=== PATIENT | male | born 1950 | race Caucasian/White ===

== ENCOUNTER → 2022-06-29 13:22 | Outpatient (CLI) | payer MEDICARE, OTHER, SELFPAY ==
[2022-06-29 20:12] LABS: BUN Creatinine Ratio 24.7 (6-22); Blood Urea Nitrogen 20 mg/dL (9-20); Calcium 8.9 mg/dL (8.4-10.2); Carbon Dioxide 25 mmol/L (22-32); Chloride 105 mmol/L (98-107); Estimated Glomerular Filt Rate > 60 mL/min (>60); Glucose 118 mg/dL (80-110); HEMOLYSIS 17 (0-50); Potassium 4.1 mmol/L (3.4-5.1); Sodium 138 mmol/L (137-145)
[2022-06-29 20:41] LABS: Prostate Specific Antigen Scrn 9.86 ng/mL (0.1-4.0)
== END ==
PROVIDERS: PCP Family Medicine; Visit Provider Family Medicine
DX: Z12.5 Encounter for screening for malignant neoplasm of prostate (principal); I10 Essential (primary) hypertension; R31.29 Other microscopic hematuria; R33.9 Retention of urine, unspecified
CPT/HCPCS: 80048; G0103

== ENCOUNTER → 2022-10-23 10:32 | Outpatient (CLI) | payer MEDICARE, OTHER, SELFPAY ==
[2022-10-23 19:52] LABS: Cholesterol 144 mg/dL (140-199); HDL Cholesterol 52 mg/dL (40-60); LDL Cholesterol Calculated 69 mg/dL (<100); Triglycerides 115 mg/dL (35-150)
[2022-10-23 20:19] LABS: Creatinine Urine Random 103.6 mg/dL
[2022-10-23 20:23] LABS: Microalbumi Creatinin Ratio Ur 16.4 ug/mg CR (<30); Microalbumin Urine Random 1.7 mg/dL (0-1.6)
[2022-10-23 21:28] LABS: Folate 10.6 ng/mL (2.76-20.0); Vitamin B12 273 pg/mL (239-931)
[2022-10-25 06:32] LABS: Labcorp Hemoglobin (Hb) A1c 5.8 % (4.8-5.6)
[2022-10-26 13:40] LABS: Albumin 3.6 g/dL (2.9-4.4); Alpha-1-Globulin 0.2 g/dL (0.0-0.4); Alpha-2-Globulin 0.6 g/dL (0.4-1.0); Gamma Globulin 1.5 g/dL (0.4-1.8); Globulin Total 3.2 g/dL (2.2-3.9); Protein, Total 6.8 g/dL (6.0-8.5)
== END ==
PROVIDERS: PCP Family Medicine; Visit Provider Family Medicine
DX: G57.93 Unspecified mononeuropathy of bilateral lower limbs (principal); E78.5 Hyperlipidemia, unspecified; G57.90 Unspecified mononeuropathy of unspecified lower limb; G62.9 Polyneuropathy, unspecified; I10 Essential (primary) hypertension; I48.20 Chronic atrial fibrillation, unspecified; R73.01 Impaired fasting glucose
CPT/HCPCS: 80061; 82043; 82570; 82607; 82746; 83036; 84155; 84165; 84443

== ENCOUNTER → 2023-10-12 09:24 | Outpatient (CLI) | payer MEDICARE, OTHER, SELFPAY ==
[2023-10-12 19:01] LABS: Add Manual Diff / Slide Review NO; Basophils Absolute Auto 100 /uL (0-100); Basophils Percent Auto 0.9 % (0-2); Eosinophils Absolute Auto 500 /uL (0-450); Hematocrit 50.1 % (41-53); Hemoglobin 16.7 g/dL (13.5-17.5); Lymphocytes Absolute Auto 1400 /uL (1100-4500); Lymphocytes Percent Auto 21.7 % (25-40); Mean Corpuscular HGB Conc 33.3 % (30-36); Mean Corpuscular Hemoglobin 32.6 PG (26-34); Mean Corpuscular Volume 97.7 fL (80-100); Monocytes Absolute Auto 400 /uL (0-900); Monocytes Percent Auto 6.8 % (3-14); Neutrophils Absolute Auto 4000 /uL (1500-7000); Neutrophils Percent Auto 62.6 % (50-75); Platelet Count 265 X10^3/uL (150-400); Red Blood Cell Count 5.13 X10^6/uL (4.5-5.9); Red Cell Distribution Width 14.1 % (11.6-14.8); White Blood Cell Count 6.4 X10^3/uL (4.5-11.0)
[2023-10-12 19:44] LABS: TSH w/ Reflex to FT4 1.78 uIU/mL (0.47-4.68)
[2023-10-12 20:11] LABS: BUN Creatinine Ratio 19.6 (6-22); Blood Urea Nitrogen 18 mg/dL (9-20); Calcium 8.7 mg/dL (8.4-10.2); Carbon Dioxide 20 mmol/L (22-32); Cholesterol 155 mg/dL (140-199); Estimated Glomerular Filt Rate > 60 mL/min (>60); Glucose 104 mg/dL (80-110); HDL Cholesterol 62 mg/dL (40-60); LDL Cholesterol Calculated 77 mg/dL (<100); Triglycerides 78 mg/dL (35-150)
[2023-10-12 20:24] LABS: Chloride 111 mmol/L (98-107); Sodium 138 mmol/L (137-145)
[2023-10-12 20:26] LABS: HEMOLYSIS 106 (0-50); Potassium 5.4 mmol/L (3.4-5.1)
[2023-10-12 20:42] LABS: Prostate Specific Antigen 11.6 ng/mL (0.10-4.00)
[2023-10-12 21:01] LABS: Vitamin B12 505 pg/mL (239-931)
[2023-10-12 23:29] LABS: Hemoglobin A1C% w Est Avg Glu 5.8 % (4.0-6.0)
== END ==
PROVIDERS: PCP Family Medicine; Visit Provider Family Medicine
DX: R73.03 Prediabetes (principal); R97.20 Elevated prostate specific antigen [PSA]; I10 Essential (primary) hypertension; E53.8 Deficiency of other specified B group vitamins; I48.20 Chronic atrial fibrillation, unspecified; E78.5 Hyperlipidemia, unspecified; G62.9 Polyneuropathy, unspecified; Z79.01 Long term (current) use of anticoagulants; G62.89 Other specified polyneuropathies; E78.2 Mixed hyperlipidemia
CPT/HCPCS: 80048; 80061; 82607; 83036; 84153; 84443; 85025

== ENCOUNTER → 2024-04-23 09:20 | Outpatient (CLI) | payer MEDICARE, OTHER, SELFPAY ==
[2024-04-23 18:51] LABS: Add Manual Diff / Slide Review NO; Basophils Absolute Auto 0 /uL (0-100); Basophils Percent Auto 0.8 % (0-2); Eosinophils Absolute Auto 300 /uL (0-450); Eosinophils Percent Auto 5.8 % (2-4); Hematocrit 48.6 % (41-53); Hemoglobin 16.2 g/dL (13.5-17.5); Lymphocytes Absolute Auto 1400 /uL (1100-4500); Lymphocytes Percent Auto 24.7 % (25-40); Mean Corpuscular HGB Conc 33.3 % (30-36); Mean Corpuscular Hemoglobin 32.5 PG (26-34); Mean Corpuscular Volume 97.4 fL (80-100); Monocytes Absolute Auto 400 /uL (0-900); Neutrophils Absolute Auto 3400 /uL (1500-7000); Neutrophils Percent Auto 61.7 % (50-75); Platelet Count 257 X10^3/uL (150-400); Red Cell Distribution Width 13.9 % (11.6-14.8); White Blood Cell Count 5.6 X10^3/uL (4.5-11.0)
[2024-04-23 19:07] LABS: BUN Creatinine Ratio 23.3 (6-22); Blood Urea Nitrogen 21 mg/dL (9-20); Calcium 9.4 mg/dL (8.4-10.2); Carbon Dioxide 24 mmol/L (22-32); Chloride 109 mmol/L (98-107); Cholesterol 146 mg/dL (140-199); Estimated Glomerular Filt Rate > 60 mL/min (>60); Glucose 98 mg/dL (80-110); HDL Cholesterol 48 mg/dL (40-60); LDL Cholesterol Calculated 84 mg/dL (<100); Sodium 139 mmol/L (137-145); Triglycerides 70 mg/dL (35-150)
[2024-04-23 19:15] LABS: HEMOLYSIS 71 (0-50); Potassium 5.5 mmol/L (3.4-5.1)
[2024-04-23 19:40] LABS: Prostate Specific Antigen 8.38 ng/mL (0.10-4.00)
[2024-04-23 19:42] LABS: TSH w/ Reflex to FT4 1.56 uIU/mL (0.47-4.68)
== END ==
PROVIDERS: PCP Family Medicine; Referring Provider Family Medicine; Visit Provider Family Medicine
DX: I48.20 Chronic atrial fibrillation, unspecified (principal); I10 Essential (primary) hypertension; R97.20 Elevated prostate specific antigen [PSA]; R73.03 Prediabetes; E53.8 Deficiency of other specified B group vitamins; E78.5 Hyperlipidemia, unspecified
CPT/HCPCS: 80048; 80061; 84153; 84443; 85025

== ENCOUNTER → 2024-04-30 09:04 | Outpatient (CLI) | payer MEDICARE, OTHER, SELFPAY ==
--- NOTE | 2024-04-30 17:26 | DI.NM.S_ITS ---
DATE OF SERVICE: 04/30/2024 EXERCISE PERFUSION STUDY INDICATIONS: Exertional shortness of breath with known history of coronary artery bypass surgery longtime back, chronic AFib, hypertension, and hyperlipidemia. RADIOPHARMACEUTICAL: 26.2 millicurie technetium-99m Myoview IV was injected at stress and 11.3 millicurie technetium-99m Myoview IV was injected at rest. CARDIAC STRESS: The patient underwent exercise stress test under the supervision of an attending staff. He walked on Sheldon protocol for 7 minutes and 35 seconds, achieved maximum heart rate of 130, which was 99% of target heart rate. Normal blood pressure response. Resting blood pressure 107/80 mmHg. Peak blood pressure 144/80 mmHg. 10.1 METS of workload. ARIANA -27%. No chest pain. The patient had shortness of breath. Baseline rhythm atrial fibrillation with intermittent PVCs and nonspecific ST-T changes. Those ST changes remained persistent during exercise. The patient continued to have PVCs including ventricular couplets without any sustained ventricular tachycardia. On room air oxygen saturation was 96% during exertion. RAW DATA: Adequate myocardial uptake. GATED STUDY: Stress LV ejection fraction 70% without any obvious wall motion abnormalities. Resting end-diastolic volume 121 mL. TID ratio 0.92, which is within normal limits. Lung/heart ratio 0.38, which is within normal limits. MYOCARDIAL PERFUSION SCAN: Stress supine, resting supine and stress prone images were compared to each other. Stress supine images revealed small size, mildly decreased perfusion of mid to distal anterior wall. Resting supine images revealed moderate-size severely decreased perfusion of mid to distal anterior wall. Those defects got completely resolved during stress prone images suggestive of tissue attenuation artifact. Stress prone images revealed normal myocardial perfusion. CONCLUSION: I will call this study a normal myocardial perfusion study with evidence of tissue attenuation artifact which got improved during stress prone images. Good exercise tolerance. ARIANA -27%. The patient walked on Sheldon protocol for 7 minutes and 35 seconds. Baseline AFib with intermittent PVCs and nonspecific ST-T changes. Preserved LV function. No sustained ventricular tachycardia. Shortness of breath during exercise. Oxygen saturation 96% on room air during exercise. Overall, low-risk exercise perfusion study. Mason Beckett - RUDDY/rob/VIMAL doc#: [id number]/job#: [id number] dd: 04/30/2024 16:28:00 dt: 04/30/2024 16:36:00 DICTATING MD/COPIES TO: Alondra Pichardo MD COPIES MNE: SANNA;
== END ==
LOC: NUCM 09:05
PROVIDERS: PCP Family Medicine; Referring Provider Family Medicine; Visit Provider Family Medicine
DX: I48.20 Chronic atrial fibrillation, unspecified (principal); R06.09 Other forms of dyspnea; Z95.1 Presence of aortocoronary bypass graft
CPT/HCPCS: 78452; 93017; A9502